=== PATIENT | male | born 1975 | race Caucasian/White ===

== ENCOUNTER 2017-02-15 19:20 | Emergency (ER) | payer BC ==
[2017-02-15] MEDS: ACETAMINOPHEN 325 MG TAB PO ONE (20:08)
--- NOTE | 2017-02-15 20:10 | Emergency Department Record ---
History of Present Illness - General Chief Complaint: Fever Stated Complaint: NAUSEA/FEVER Time Seen by Provider: 02/15/17 20:06 Source: Patient Mode of Arrival: Ambulatory Limitations: No limitations - History of Present Illness Initial Comments: The patient is here due to not feeling well for 2 days. He has had a fever, chills, cough, sputum production, body aches, mild HE and malaise for 2 days. He also has had epigastric pain for months which is worse after eating. The patient did go to an and was told to go to the ER for dehydration. The patient denies any dysuria, neck pain, confusion or recent vomiting. MD Complaint: Fever, Malaise Onset/Timin -: Days(s) Associated Symptoms: Abdominal pain, Chills, Nausea, Night sweats Treatments Prior to Arrival: None - Related Data Home Medications Medication Instructions Recorded Confirmed Last Taken Famotidine [Pepcid] 40 mg PO BID 02/15/17 02/15/17 Unknown Previous Rx's Medication Instructions Recorded Doxycycline Monohydrate [Mondoxyne 100 mg PO BID #14 capsule 02/15/17 Nl] Sucralfate [Carafate] 1 gm PO QID #28 tablet 02/15/17 Allergies Allergy/AdvReac Type Severity Reaction Status Date / Time No Known Drug Allergies Allergy Verified 02/15/17 19:31 Travel Screening - Travel/Exposure Within Last 30 Days Have you traveled within the last 30 days?: No - Travel Symptoms Symptom Screening: None Review of Systems Constitutional: Reports: Chills, Fever, Malaise Eyes: Denies: Eye discharge ENT: Reports: Congestion Respiratory: Reports: Cough. Denies: Dyspnea Past Medical History - SOCIAL HISTORY Smoking Status: Never smoker - RESPIRATORY Hx Respiratory Disorders: No - CARDIOVASCULAR Hx Cardio Disorders: No - NEURO Hx Neuro Disorders: No - GI Hx GI Disorders: Yes Hx Reflux: Yes Hx Ulcer: Yes - Hx Genitourinary Disorders: No - ENDOCRINE Hx Endocrine Disorders: No - MUSCULOSKELETAL Hx Musculoskeletal Disorders: No - PSYCH Hx Psych Problems: No - HEMATOLOGY/ONCOLOGY Hx Hematology/Oncology Disorders: No Family Medical History Any Significant Family History?: No Family Hx Comment (NOT TO BE USED IN PLACE OF ITEMS BELOW): denies Physical Exam - General General Appearance: Alert, Oriented x3, Cooperative, No acute distress - Head Head exam: Atraumatic, Normocephalic, Normal inspection - Eye Eye exam: Normal appearance, PERRL - ENT ENT exam: Normal exam, Mucous membranes moist, Normal external ear exam, Normal orophraynx, TM's normal bilaterally Throat exam: Normal inspection. negative: Tonsillar erythema, Tonsillar exudate - Neck Neck exam: Normal inspection, Full ROM. negative: Lymphadenopathy, Meningismus (The neck is very supple.), Tenderness - Respiratory Respiratory exam: Normal lung sounds bilaterally. negative: Respiratory distress - Cardiovascular Cardiovascular Exam: Regular rate, Normal rhythm, Normal heart sounds - GI/Abdominal GI/Abdominal exam: Soft, Normal bowel sounds. negative: Distended, Rebound, Rigid, Tenderness - Extremities Extremities exam: Normal inspection, Full ROM, Normal capillary refill. negative: Tenderness - Neurological Neurological exam: Alert, Normal gait. negative: Abnormal gait, Motor sensory deficit Course Vital Signs 02/15/17 19:33 Temperature 101.7 F H Pulse Rate 90 Respiratory 18 Rate Blood Pressure 133/106 Pulse Ox 94 L - Reevaluation(s) Reevaluation #1: The patient is doing a lot better at this time. He denies any significant HE, AP , CP or cough. On exam he appears very healthy and nontoxic. I did discuss the issues with him and did recommend fluids and an oral Abx due to the cough and sputum production. He also will be referred to a GI doctor for his epigastric issues. 02/15/17 22:01 Medical Decision Making - Data Complexity MDM Data: Labs Ordered and/or Reviewed, X-Ray Ordered and/or Reviewed - Lab Data Result diagrams: 02/15/17 20:25 02/15/17 20:25 - Radiology Data Radiology results: Report reviewed (CXR: Neg.) Disposition Disposition: Discharge Clinical Impression: Acute bronchitis Qualifiers: Bronchitis organism: unspecified organism Qualified Code(s): J20.9 - Acute bronchitis, unspecified Disposition: Home, Self-Care Condition: (1) Good Instructions: Fever in Adults (ED), Acute Bronchitis (ED) Additional Instructions: Please use Tylenol and Motrin for the fever and drink plenty of fluids. Please take the Doxy and Carafate as directed and continue your regular medicines. Please see your PCP for recheck next week and also the GI doctor [facility]. Return to the ER for any increased temp > 102, vomiting, worsening head pain or any trouble breathing. Prescriptions: Doxycycline Monohydrate [Mondoxyne Nl] 100 mg PO BID #14 capsule Sucralfate [Carafate] 1 gm PO QID #28 tablet Referrals: [facility] [Provider Group] ARIANA GONZALEZ [DOCTOR OF OSTEOPATH] - Forms: Patient Portal Access Time of Disposition: 22:05 Quality - Quality Measures Quality Measures: N/A - Blood Pressure Screening View Details: Yes Does Patient Have Any of the Following: No Blood Pressure Classification: Hypertensive Reading Systolic Measurement: 133 Diastolic Measurement: 106 Screening for High Blood Pressure: < Pre-Hypertensive BP, F/U Documented > [ [id number]] Pre-Hypertensive Follow-up Interventions: Referral to alternative/primary care provider.
[2017-02-15] MEDS: SUCRALFATE 1 G/10 ML UD PO ONE (20:22)
[2017-02-15] MEDS: ONDANSETRON HCL IV 4 MG/2 ML VIAL IV ONE (20:26)
[2017-02-15] MEDS: IBUPROFEN 600 MG TABLET PO ONE (20:28)
[2017-02-15] MEDS: 0.9 % SODIUM CHLORIDE 1,000 ML BAG IV ONE (20:29)
[2017-02-15 20:38] LABS: BASO % 0.4 % (0-6); EOS % 0.6 % (0-6); GRAN % 68.3 % (47-80); HEMATOCRIT 41.4 % (42.0-52.0); HEMOGLOBIN 14.4 gm/dl (14.0-18.0); LYMPH % 19.7 % (16-45); MEAN CELL VOLUME 91.2 fl (81-97); MEAN CORPUSCULAR HEMOGLOBIN 31.7 pg (27-33); MEAN CORPUSCULAR HGB CONC 34.8 g/dl (32-36); MEAN PLATELET VOLUME 8.3 fl (7.4-10.4); PLATELET COUNT 262 K/uL (130-400); RED BLOOD COUNT 4.54 M/uL (4.40-5.70); RED CELL DISTRIBUTION WIDTH 12.6 % (11.5-14.5); WHITE BLOOD COUNT W/O DIFF 7.7 K/uL (4.2-12.2)
[2017-02-15 20:48] LABS: ALBUMIN 4.4 gm/dL (3.5-5.0); ALKALINE PHOSPHATASE 62 U/L (38-126); ALT/SGPT 42 U/L (21-72); ANION GAP 10.6 (7-16); AST/SGOT 27 U/L (17-59); BILIRUBIN,TOTAL 1.13 mg/dL (0.2-1.3); BLOOD UREA NITROGEN 17 mg/dL (9-20); CARBON DIOXIDE 23.4 mmol/L (22-30); EST GLOMERULAR FILTRATION RATE > 60 ml/min; GLUCOSE,RANDOM 119 mg/dL (70-110); TOTAL PROTEIN 7.7 gm/dL (6.3-8.2)
[2017-02-15 20:50] LABS: URINE APPEARANCE CLEAR; URINE BILIRUBIN NEGATIVE (NEGATIVE); URINE BLOOD TRACE-I (NEGATIVE); URINE COLOR YELLOW; URINE GLUCOSE (UA) NEGATIVE (NEGATIVE); URINE KETONE 40 mg/dL (NEGATIVE); URINE LEUKOCYTE ESTERASE NEGATIVE (NEGATIVE); URINE NITRITE NEGATIVE (NEGATIVE); URINE PROTEIN NEGATIVE (NEGATIVE); URINE UROBILINOGEN 0.2 E.U./dL (0.20 - 1.00)
[2017-02-15 21:01] LABS: URINE MUCUS LIGHT; URINE WBC 0 - 2 (0-2/hpf)
[2017-02-15 21:09] LABS: LIPASE 89 U/L (23-300)
[2017-02-15] MEDS ORDERED: DOXYCYCLINE HYCLATE 100 MG CAPSULE PO ONE (22:01)
--- NOTE | 2017-02-17 21:00 | RADIOLOGY REPORT ---
EXAM: CHEST 2 VIEWS HISTORY: ACID REFLUX. CHEST PAIN. TECHNIQUE: Upright PA and lateral views of the chest are obtained. COMPARISON: None. FINDINGS: The cardiomediastinal silhouette is normal in size and configuration. The pulmonary vasculature is nondilated. The lungs and pleural spaces are clear. Mild anterior marginal endplate spurring is scattered within the thoracic spine. There is a thin linear opacity projecting near the anterior margin of the mid to upper chest wall left of midline. This cannot be further localized. IMPRESSION: 1. NO ACUTE CARDIOPULMONARY DISEASE. 2. THIN LINEAR METALLIC DENSITY MEASURING APPROXIMATELY 2.5 CM IN LENGTH PROJECTING NEAR THE ANTERIOR MID TO UPPER CHEST WALL LEFT OF MIDLINE. THIS CANNOT BE FURTHER LOCALIZED. A SOFT TISSUE FOREIGN BODY WOULD BE DIFFICULT TO EXCLUDE. JOB NUMBER: [id number] [facility]
== END 2017-02-15 22:17 | disposition home or self-care (01) ==
LOC: ER 19:20
DX: J20.9 Acute bronchitis, unspecified (principal); R11.0 Nausea; R10.13 Epigastric pain; R51 Headache; R53.81 Other malaise
CPT/HCPCS: 99284 ×2; 96374; 83690; 85025; 80076; 80048; 81001; 71020; J2405; J7030